=== PATIENT | female | born 1995 | race Caucasian/White ===

== ENCOUNTER 2018-06-12 20:32 | Emergency (ER) | payer MEDICAID ==
[~2018-06-12] VITALS: Ht 160 cm; Wt 81.6 kg
[~2018-06-12 20:32] MED LIST: CALC500T2 PO; PRETAB PO
[2018-06-12 20:36] VITALS: BP 111/88
--- NOTE | 2018-06-12 20:45 | NUR ---
PT ASSISTED BACK TO LOBBY
--- NOTE | 2018-06-12 22:14 | NUR ---
PT TAKEN TO BED 4
--- NOTE | 2018-06-12 22:30 | NUR ---
PATIENT PRESENTS TO ED WITH rash/ bug bite on legs bilateral .the site has some redness and swelling. SKIN IS PINK/WARM/DRY; AAOX4 WITH EVEN AND STEADY GAIT;pt denies fever at this time. PATIENT STATES PAIN/itching OF 10/10 AT THIS TIME; VSS; PATIENT POSITIONED FOR COMFORT; HOB ELEVATED; BEDRAILS UP X2; BED DOWN. ER MD MADE AWARE OF PT STATUS.
--- NOTE | 2018-06-12 23:00 | NUR ---
Dr. Lyn evaluating patient at bedside.
[2018-06-12 23:39] VITALS: BP 111/88
--- NOTE | 2018-06-12 23:39 | NUR ---
Patient discharged with v/s stable. Written and verbal after care instructions given and explained. Patient alert, oriented and verbalized understanding of instructions. Ambulatory with steady gait. All questions addressed prior to discharge. ID band removed. Patient advised to follow up with PMD. Rx of hydrocortisone cream was given. Patient educated on indication of medication including possible reaction and side effects. Opportunity to ask questions provided and answered.
== END 2018-06-12 23:39 | disposition home or self-care (01) ==
LOC: MED 20:32
DX: S90.562A Insect bite (nonvenomous), left ankle, initial encounter (principal); S90.561A Insect bite (nonvenomous), right ankle, initial encounter; Z79.899 Other long term (current) drug therapy; W57.XXXA Bitten or stung by nonvenomous insect and other nonvenomous arthropods, initial encounter; Y92.89 Other specified places as the place of occurrence of the external cause; Y99.8 Other external cause status
CPT/HCPCS: 99283

== ENCOUNTER 2023-09-03 22:25 | Emergency (ER) | payer MEDICAID ==
[~2023-09-03] VITALS: Ht 160 cm; Wt 86.2 kg
[2023-09-03 22:39] VITALS: BP 131/96; PULSE 104; RESP 16; TEMP 97.4; O2SAT 99
[2023-09-04 00:08] VITALS: TEMP 97.9
[2023-09-04] MEDS ORDERED: NAPR-54 PO (00:41)
[2023-09-04 00:49] VITALS: BP 136/83; PULSE 98; RESP 14; O2SAT 100
== END 2023-09-04 00:49 | disposition home or self-care (01) ==
LOC: MED 22:25
DX: T17.298A Other foreign object in pharynx causing other injury, initial encounter (principal); W44.8XXA Other foreign body entering into or through a natural orifice, initial encounter; Y93.89 Activity, other specified; Y92.89 Other specified places as the place of occurrence of the external cause; Y99.8 Other external cause status
CPT/HCPCS: 42809; 99284

== ENCOUNTER 2023-09-14 21:47 | Emergency (ER) | payer MEDICAID ==
[~2023-09-14] VITALS: Ht 160 cm; Wt 86.2 kg
[~2023-09-14 21:47] MED LIST changes: +NAPR-54 PO
[2023-09-14 22:40] VITALS: BP 133/77; PULSE 80; RESP 17; TEMP 97.8; O2SAT 100
[2023-09-14 23:45] LABS: BILIRUBIN,URINE NEGATIVE (NEGATIVE); BLOOD, URINE 2+ (NEGATIVE); COLOR,URINE YELLOW (YELLOW); LEUKOCYTE ESTERASE ,URINE NEGATIVE (NEGATIVE); NITRITE, URINE NEGATIVE (NEGATIVE); PROTEIN,URINE NEGATIVE (NEGATIVE); UGLUCOSE NEGATIVE (NEGATIVE); UROBILINOGEN,URINE 0.2 EU/dL (0.2 - 1)
[2023-09-14 23:47] LABS: APPEARANCE,URINE SLIGHTLY HAZY (CLEAR)
[2023-09-15 00:08] LABS: BACTERIA,URINE 2+ /HPF (None Seen); SQUAMOUS EPITHELIAL CELL,UR 20-50 /LPF (0-3 (FEW)); WBC,URINE 0-5 /HPF (0-5)
[2023-09-15] MEDS ORDERED: ACETAMINOPHEN EXTRA STRENGTH 500 MG TAB PO ONE (04:50)
[2023-09-15] MEDS ORDERED: KETOROLAC 30 MG/ML VIAL IM ONE (04:50)
[2023-09-15] MEDS ORDERED: ACETAMINOPHEN 325 MG TAB ONE (05:58)
[2023-09-15] MEDS ORDERED: KETOROLAC 30 MG/ML VIAL ONE (05:59)
[2023-09-15] MEDS ORDERED: ACETAMINOPHEN 325 MG TAB PO ONE ×2 (06:10)
[2023-09-15 07:42] LABS: BASOPHILS % (AUTO) 0.2 % (0.0-2.0); EOSINOPHILS % (AUTO) 0.1 % (0.0-4.0); HEMATOCRIT 37.9 % (36-48); HEMOGLOBIN 12.8 g/dL (12.0-16.0); LYMPHOCYTES # (AUTO) 3.9 K/uL (2.5-16.5); LYMPHOCYTES % (AUTO) 28.5 % (20.5-51.1); MEAN CORPUSCULAR HEMOGLOBIN 30 pg (27-31); MEAN CORPUSCULAR HGB CONC 34 g/dL (33-37); MONOCYTES # (AUTO) 0.5 K/uL (0.8-1.0); MONOCYTES % (AUTO) 3.8 % (1.7-9.3); NEUTROPHILS # (AUTO) 9.2 K/uL (1.8-7.7); NEUTROPHILS % (AUTO) 67.4 % (42.2-75.2); PLATELET COUNT (AUTO) 389 K/uL (140-450); RED BLOOD CELL COUNT(AUTO) 4.31 MIL/uL (4.20-5.40); RED CELL DISTRIBUTION WIDTH 12.6 % (11.6-13.7); WHITE BLOOD COUNT (AUTO) 13.6 K/uL (4.8-10.8)
[2023-09-15 09:08] LABS: ANION GAP 15.4 (8-16); CALCIUM 9.2 mg/dL (8.5-10.1); CREATININE 0.7 mg/dL (0.6-1.3); POTASSIUM 4.4 mmol/L (3.5-5.1)
[2023-09-15 09:15] LABS: ALBUMIN 3.9 g/dL (3.4-5.0); TOTAL BILIRUBIN 0.4 mg/dL (0.0-1.0); TOTAL PROTEIN, SERUM 8.1 g/dL (6.4-8.2)
[2023-09-15] MEDS ORDERED: IBUP-2213 PO (09:25)
[2023-09-15] MEDS ORDERED: ONDA-188 SL (09:25)
== END 2023-09-15 10:03 | disposition home or self-care (01) ==
LOC: MED 21:47
DX: K80.50 Calculus of bile duct without cholangitis or cholecystitis without obstruction (principal); K80.20 Calculus of gallbladder without cholecystitis without obstruction; Z79.899 Other long term (current) drug therapy
CPT/HCPCS: 36415; 76700; 80053; 81001; 81025; 83690; 85025; 87086; 96372; 99285; J1885

== ENCOUNTER 2024-02-28 23:03 | Emergency (ER) | payer MEDICAID ==
[~2024-02-28] VITALS: Ht 160 cm; Wt 86.2 kg
[~2024-02-28 23:03] MED LIST changes: +IBUP-2213 PO; +NAPR-337 PO; -NAPR-54 PO; +ONDA-188 SL
[2024-02-28 23:05] VITALS: BP 134/71; PULSE 122; RESP 18; TEMP 97.8; O2SAT 98
[2024-02-28 23:20] VITALS: RESP 18; TEMP 97.8
[2024-02-28] MEDS ORDERED: methylPREDNISolone SS 125 MG in WATER STERILE 2 ML IV ONE (23:25)
[2024-02-28] MEDS ORDERED: methylPREDNISolone SS 125 MG/2 ML VIAL ONE (23:40)
[2024-02-28] MEDS: diphenhydrAMINE 50 MG/ML VIAL IVP ONE (23:42)
[2024-02-29 00:01] VITALS: BP 137/86; PULSE 106; O2SAT 100
[2024-02-29] MEDS: methylPREDNISolone SS 125 MG/2 ML VIAL IVP ONE (00:18)
[2024-02-29] MEDS ORDERED: FEXO180T82 PO (01:02)
== END 2024-02-29 01:05 | disposition home or self-care (01) ==
LOC: MED 23:03
DX: T78.49XA Other allergy, initial encounter (principal); F41.9 Anxiety disorder, unspecified; R00.0 Tachycardia, unspecified; Z79.899 Other long term (current) drug therapy; X58.XXXA Exposure to other specified factors, initial encounter
CPT/HCPCS: 96374; 96375; 99284; J1200; J2930

== ENCOUNTER 2024-05-22 19:57 | Emergency (ER) | payer MEDICAID ==
[~2024-05-22] VITALS: Ht 160 cm; Wt 94.3 kg
[~2024-05-22 19:57] MED LIST changes: +FEXO180T82 PO
[2024-05-22 20:15] VITALS: BP 122/79; PULSE 102; RESP 16; TEMP 98.1; O2SAT 99
[2024-05-22 20:29] VITALS: BP 122/79; PULSE 102; RESP 16; TEMP 99.9
[2024-05-22 20:44] LABS: APPEARANCE,URINE TURBID (CLEAR); BILIRUBIN,URINE NEGATIVE (NEGATIVE); BLOOD, URINE 3+ (NEGATIVE); COLOR,URINE YELLOW (YELLOW); LEUKOCYTE ESTERASE ,URINE NEGATIVE (NEGATIVE); NITRITE, URINE NEGATIVE (NEGATIVE); PROTEIN,URINE NEGATIVE (NEGATIVE); UGLUCOSE NEGATIVE (NEGATIVE); UROBILINOGEN,URINE 0.2 EU/dL (0.2 - 1)
[2024-05-22 20:57] LABS: BASOPHILS % (AUTO) 0.1 % (0.0-2.0); HEMATOCRIT 37.8 % (36-48); HEMOGLOBIN 12.7 g/dL (12.0-16.0); LYMPHOCYTES # (AUTO) 1.6 K/uL (2.5-16.5); MEAN CORPUSCULAR HEMOGLOBIN 29 pg (27-31); MEAN CORPUSCULAR HGB CONC 34 g/dL (33-37); MEAN CORPUSCULAR VOLUME 87.6 fL (80-94); MONOCYTES # (AUTO) 0.4 K/uL (0.8-1.0); MONOCYTES % (AUTO) 3.5 % (1.7-9.3); NEUTROPHILS # (AUTO) 9.2 K/uL (1.8-7.7); NEUTROPHILS % (AUTO) 82.4 % (42.2-75.2); PLATELET COUNT (AUTO) 325 K/uL (140-450); RED BLOOD CELL COUNT(AUTO) 4.31 MIL/uL (4.20-5.40); WHITE BLOOD COUNT (AUTO) 11.1 K/uL (4.8-10.8)
[2024-05-22] MEDS: KETOROLAC 30 MG/ML VIAL IM ONE (20:58)
[2024-05-22] MEDS: FAMOTIDINE 20 MG TAB PO ONE (21:00)
[2024-05-22] MEDS: ALUMINUM HYD/MAG/SIMETHICONE 30 ML UDC PO ONE (21:00)
[2024-05-22 21:01] VITALS: O2SAT 99
[2024-05-22 21:01] LABS: BACTERIA,URINE 10-30 (MOD) /HPF (None Seen); SQUAMOUS EPITHELIAL CELL,UR 4-10 (MOD) /LPF (0-3 (FEW))
[2024-05-22 21:15] LABS: ALBUMIN 3.5 g/dL (3.4-5.0); ANION GAP 15.3 (8-16); CALCIUM 9.2 mg/dL (8.5-10.1); CARBON DIOXIDE 23.3 mmol/L (21-32); CREATININE 0.8 mg/dL (0.6-1.3); POTASSIUM 3.6 mmol/L (3.5-5.1); TOTAL BILIRUBIN 0.3 mg/dL (0.0-1.0); TOTAL PROTEIN, SERUM 7.7 g/dL (6.4-8.2)
== END 2024-05-22 21:44 | disposition home or self-care (01) ==
LOC: MED 19:57
DX: K52.9 Noninfective gastroenteritis and colitis, unspecified (principal); R50.9 Fever, unspecified; Z79.899 Other long term (current) drug therapy; Z90.49 Acquired absence of other specified parts of digestive tract
CPT/HCPCS: 36415; 80053; 81001; 81025; 83690; 85025; 87086; 96372; 99283; J1885